=== PATIENT | male | born 1980 | race African-American/Black ===

== ENCOUNTER 2019-12-15 17:42 | Inpatient (IN) | payer OTHER ==
[2019-12-15] MEDS ORDERED: ALBUTEROL NEBULIZED 2.5 MG/3 ML INHALATION STA (18:20)
[2019-12-15] MEDS ORDERED: IBUPROFEN 600 MG TAB PO STA (18:21)
[2019-12-15] MEDS ORDERED: SODIUM CHLORIDE 0.9% 1,000 ML IV ONE (18:27)
[2019-12-15] MEDS ORDERED: MORPHINE SULFATE 4 MG/ML SYRINGE IV STA (18:30)
--- NOTE | 2019-12-15 18:46 | ED ---
General Adult HPI - General Source: patient, RN notes reviewed, old records reviewed Mode of arrival: wheelchair Limitations: no limitations <Breezy Valladares - Last Filed: 12/16/19 02:04> <Moni Montalvo - Last Filed: 12/17/19 12:26> - General Chief complaint: Recheck/Abnormal Lab/Rx Stated complaint: Dehydration Time Seen by Provider: 12/15/19 17:45 - History of Present Illness Initial comments: 39-year-old male patient with no pertinent past history presents to ED. Patient tested positive for Covid 2 days ago. Since then he has been having coughing, some pain in his chest, some shortness of breath. Patient reports that he is not doing much eating and drinking. Feels as if he is very dehydrated. Patient reports that yesterday he was standing up to urinate, felt very weak, had a controlled descent to ground. Denies any trauma to his head or neck. Denies any other complaints at this time. Systemic: Pt denies fatigue, rash. Pt denies weakness, night sweats, weight loss. Neuro: Pt denies headache, visual disturbances, syncope or pre-syncope. HEENT: Pt denies ocular discharge or irritation, otalgia, rhinorrhea, pharyngitis or notable lymphadenopathy. Cardiopulmonary: Pt denies chest pain, SOB, heart palpitations, dyspnea on exertion. Abdominal/GI: Pt denies abdominal pain, n/v/d. : Pt denies dysuria, burning w/ urination, frequency/urgency. Denies new onset urinary or bowel incontinence. MSK: Pt denies myalgia, loss of strength or function in extremities. Neuro: Pt denies new onset weakness, paresthesias. (Breezy Valladares) - Related Data Home Medications Medication Instructions Recorded Confirmed Acetaminophen Tab [Tylenol] 500 - 1,500 mg PO DAILY PRN 12/15/19 12/15/19 Azithromycin [Zithromax Z-pack] See Taper PO DAILY 12/15/19 12/15/19 Dextroamphetamine/Amphetamine 30 mg PO BID 12/15/19 12/15/19 [Dextroamp-Amphetamin 30 mg Tab] Allergies Allergy/AdvReac Type Severity Reaction Status Date / Time No Known Allergies Allergy Verified 12/15/19 23:02 Review of Systems ROS Other: All systems not noted in ROS Statement are negative. <Breezy Valladares - Last Filed: 12/16/19 02:04> ROS Other: All systems not noted in ROS Statement are negative. <Moni Montalvo - Last Filed: 12/17/19 12:26> ROS Statement: Those systems with pertinent positive or pertinent negative responses have been documented in the HPI. Past Medical History Past Medical History: No Reported History History of Any Multi-Drug Resistant Organisms: None Reported Past Surgical History: Orthopedic Surgery Additional Past Surgical History / Comment(s): foot, vasectomy Smoking Status: Never smoker Past Alcohol Use History: None Reported Past Drug Use History: None Reported - Past Family History family Family Medical History: No Reported History <Breezy Valladares - Last Filed: 12/16/19 02:04> General Exam Limitations: no limitations <Breezy Valladares - Last Filed: 12/16/19 02:04> - General Exam Comments Initial Comments: Constitutional: NAD, AOX3, Pt has pleasant affect. HEENT: NC/AT, trachea midline, neck supple. External ears appear normal, without discharge. Mucous membranes moist. Eyes PERRLA, EOM intact. There is no scleral icterus. No pallor noted. Cardiopulmonary: RRR, no murmurs, rubs or gallops, no JVD noted. Lungs CTAB in anterior and posterior craft. No peripheral edema. Abdominal exam: Abdomen soft and non-distended. Abdomen non-tender to palpation in all 4 quadrants. Bowel sounds active in LLQ. No hepatosplenomegaly. No ecchymosis Neuro: CN II-XII intact. No nuchal rigidity. No raccon eyes, no palma sign, no hemotympanum. No cervical spinal tenderness. MSK: No posterior calf tenderness bilaterally, homans sign negative bilaterally. Posterior tibialis and radial pulse +2 bilaterally. Sensation intact in upper and lower extremities. Full active ROM in upper and lower extremities, 5/5 stregnth. (Breezy Valladares) Course Vital Signs 12/15/19 12/15/19 12/15/19 18:07 19:21 19:54 Temperature 102.1 F H Pulse Rate 85 99 99 Respiratory 18 16 Rate Blood Pressure 112/75 126/87 O2 Sat by Pulse 99 100 Oximetry 06/12/15/19 12/15/19 20:04 20:10 20:38 Temperature 101.5 F H Pulse Rate 99 91 Respiratory 18 16 Rate Blood Pressure 134/90 O2 Sat by Pulse 98 Oximetry 12/15/19 12/15/19 22:57 23:01 Temperature 100.3 F H Pulse Rate 80 Respiratory 16 Rate Blood Pressure 110/71 O2 Sat by Pulse 98 Oximetry Medical Decision Making - Lab Data Result diagrams: 12/15/19 18:02 12/15/19 18:02 - EKG Data -: EKG Interpreted by Me (and Dr. Montalvo ) <Breezy Valladares - Last Filed: 12/16/19 02:04> - Lab Data Result diagrams: 12/17/19 05:49 12/17/19 05:49 <Moni Montalvo - Last Filed: 12/17/19 12:26> - Medical Decision Making 39-year-old male patient with no pertinent past history presents to ED. Patient tested positive for Covid 2 days ago. Since then he has been having coughing, some pain in his chest, some shortness of breath. Patient reports that he is not doing much eating and drinking. Feels as if he is very dehydrated. Patient reports that yesterday he was standing up to urinate, felt very weak, had a controlled descent to ground. Denies any trauma to his head or neck. Denies any other complaints at this time. Patient vital signs slight fever. Physical exam did not display acute pathology. Laboratory investigations were obtained. Overall non-impressive. CRP is elevated. As patient is claiming pain in the chest and had a possible syncopal episode a CTA was performed. This displayed no evidence of pulmonary embolism. Bilateral peripheral mainly posterior pulmonary infiltrates consistent with inflammatory disease. During reevaluation patient began complaining of headache. As patient had recent fall yesterday a CT of the brain and cervical spine was performed. This is negative. EKG is nonischemic. Patient be admitted for further evaluation. Case discussed with Dr. Montalvo. (Breezy Valladares) I was available for consultation in the emergency department. The history and physical exam were done by the midlevel provider. I was consulted for this patients care. I reviewed the case with the midlevel provider and based on their presentation of the patient, I agree with the assessment, medical decision making and plan of care as documented. I spoke with Dr. Lawson who accepted admission. Chart was dictated using [employer] dictation software. Attempts were made to correct any dictation errors however some typographical errors may persist. Patient was seen during a national state of emergency due to the Covid-19 pandemic. (Moni Montalvo) - Lab Data Lab Results 12/15/19 12/15/19 12/15/19 Range/Units 18:02 18:02 18:02 WBC 4.9 (3.8-10.6) k/uL RBC 4.80 (4.30-5.90) m/uL Hgb 15.1 (13.0-17.5) gm/dL Hct 43.0 (39.0-53.0) % MCV 89.5 (80.0-100.0) fL MCH 31.4 (25.0-35.0) pg MCHC 35.1 (31.0-37.0) g/dL RDW 11.6 (11.5-15.5) % Plt Count 195 (150-450) k/uL Neutrophils % 78 % Lymphocytes % 12 % Monocytes % 6 % Eosinophils % 1 % Basophils % 0 % Neutrophils # 3.8 (1.3-7.7) k/uL Lymphocytes # 0.6 L (1.0-4.8) k/uL Monocytes # 0.3 (0-1.0) k/uL Eosinophils # 0.0 (0-0.7) k/uL Basophils # 0.0 (0-0.2) k/uL PT (9.0-12.0) sec INR (<1.2) APTT (22.0-30.0) sec D-Dimer (<0.60) mg/L FEU Sodium 132 L (137-145) mmol/L Potassium 3.5 (3.5-5.1) mmol/L Chloride 101 (98-107) mmol/L Carbon Dioxide 22 (22-30) mmol/L Anion Gap 9 mmol/L BUN 11 (9-20) mg/dL Creatinine 1.16 (0.66-1.25) mg/dL Est GFR (CKD-EPI)AfAm >90 (>60 ml/min/1.73 sqM) Est GFR (CKD-EPI)NonAf 81 (>60 ml/min/1.73 sqM) Glucose 106 H (74-99) mg/dL Plasma Lactic Acid Kaleb 1.3 (0.7-2.0) mmol/L Calcium 9.1 (8.4-10.2) mg/dL Magnesium 2.0 (1.6-2.3) mg/dL Ferritin 718.8 H (22.0-322.0) ng/mL Total Bilirubin 0.6 (0.2-1.3) mg/dL AST 35 (17-59) U/L ALT 29 (4-49) U/L Alkaline Phosphatase 62 (38-126) U/L Lactate Dehydrogenase 538 (313-618) U/L Creatine Kinase (55-170) U/L Troponin I (0.000-0.034) ng/mL C-Reactive Protein 31.4 H (<10.0) mg/L Total Protein 7.4 (6.3-8.2) g/dL Albumin 4.2 (3.5-5.0) g/dL Procalcitonin (0.02-0.09) ng/mL 12/15/19 12/15/19 12/15/19 Range/Units 18:02 18:02 19:19 WBC (3.8-10.6) k/uL RBC (4.30-5.90) m/uL Hgb (13.0-17.5) gm/dL Hct (39.0-53.0) % MCV (80.0-100.0) fL MCH (25.0-35.0) pg MCHC (31.0-37.0) g/dL RDW (11.5-15.5) % Plt Count (150-450) k/uL Neutrophils % % Lymphocytes % % Monocytes % % Eosinophils % % Basophils % % Neutrophils # (1.3-7.7) k/uL Lymphocytes # (1.0-4.8) k/uL Monocytes # (0-1.0) k/uL Eosinophils # (0-0.7) k/uL Basophils # (0-0.2) k/uL PT 11.1 (9.0-12.0) sec INR 1.1 (<1.2) APTT 27.4 (22.0-30.0) sec D-Dimer <0.17 (<0.60) mg/L FEU Sodium (137-145) mmol/L Potassium (3.5-5.1) mmol/L Chloride (98-107) mmol/L Carbon Dioxide (22-30) mmol/L Anion Gap mmol/L BUN (9-20) mg/dL Creatinine (0.66-1.25) mg/dL Est GFR (CKD-EPI)AfAm (>60 ml/min/1.73 sqM) Est GFR (CKD-EPI)NonAf (>60 ml/min/1.73 sqM) Glucose (74-99) mg/dL Plasma Lactic Acid Kaleb (0.7-2.0) mmol/L Calcium (8.4-10.2) mg/dL Magnesium (1.6-2.3) mg/dL Ferritin (22.0-322.0) ng/mL Total Bilirubin (0.2-1.3) mg/dL AST (17-59) U/L ALT (4-49) U/L Alkaline Phosphatase (38-126) U/L Lactate Dehydrogenase (313-618) U/L Creatine Kinase (55-170) U/L Troponin I <0.012 (0.000-0.034) ng/mL C-Reactive Protein (<10.0) mg/L Total Protein (6.3-8.2) g/dL Albumin (3.5-5.0) g/dL Procalcitonin 0.15 H (0.02-0.09) ng/mL 12/16/19 12/16/19 12/17/19 Range/Units 00:33 05:54 05:49 WBC 2.2 L (3.8-10.6) k/uL RBC 4.53 (4.30-5.90) m/uL Hgb 13.5 (13.0-17.5) gm/dL Hct 41.7 (39.0-53.0) % MCV 92.0 (80.0-100.0) fL MCH 29.7 (25.0-35.0) pg MCHC 32.3 (31.0-37.0) g/dL RDW 11.8 (11.5-15.5) % Plt Count 198 (150-450) k/uL Neutrophils % 70 % Lymphocytes % 22 % Monocytes % 3 % Eosinophils % 1 % Basophils % 0 % Neutrophils # 1.5 (1.3-7.7) k/uL Lymphocytes # 0.5 L (1.0-4.8) k/uL Monocytes # 0.1 (0-1.0) k/uL Eosinophils # 0.0 (0-0.7) k/uL Basophils # 0.0 (0-0.2) k/uL PT (9.0-12.0) sec INR (<1.2) APTT (22.0-30.0) sec D-Dimer (<0.60) mg/L FEU Sodium (137-145) mmol/L Potassium (3.5-5.1) mmol/L Chloride (98-107) mmol/L Carbon Dioxide (22-30) mmol/L Anion Gap mmol/L BUN (9-20) mg/dL Creatinine (0.66-1.25) mg/dL Est GFR (CKD-EPI)AfAm (>60 ml/min/1.73 sqM) Est GFR (CKD-EPI)NonAf (>60 ml/min/1.73 sqM) Glucose (74-99) mg/dL Plasma Lactic Acid Kaleb (0.7-2.0) mmol/L Calcium (8.4-10.2) mg/dL Magnesium (1.6-2.3) mg/dL Ferritin (22.0-322.0) ng/mL Total Bilirubin (0.2-1.3) mg/dL AST (17-59) U/L ALT (4-49) U/L Alkaline Phosphatase (38-126) U/L Lactate Dehydrogenase (313-618) U/L Creatine Kinase (55-170) U/L Troponin I <0.012 <0.012 (0.000-0.034) ng/mL C-Reactive Protein (<10.0) mg/L Total Protein (6.3-8.2) g/dL Albumin (3.5-5.0) g/dL Procalcitonin (0.02-0.09) ng/mL 12/17/19 12/17/19 Range/Units 05:49 05:49 WBC (3.8-10.6) k/uL RBC (4.30-5.90) m/uL Hgb (13.0-17.5) gm/dL Hct (39.0-53.0) % MCV (80.0-100.0) fL MCH (25.0-35.0) pg MCHC (31.0-37.0) g/dL RDW (11.5-15.5) % Plt Count (150-450) k/uL Neutrophils % % Lymphocytes % % Monocytes % % Eosinophils % % Basophils % % Neutrophils # (1.3-7.7) k/uL Lymphocytes # (1.0-4.8) k/uL Monocytes # (0-1.0) k/uL Eosinophils # (0-0.7) k/uL Basophils # (0-0.2) k/uL PT (9.0-12.0) sec INR (<1.2) APTT (22.0-30.0) sec D-Dimer <0.17 (<0.60) mg/L FEU Sodium 135 L (137-145) mmol/L Potassium 4.7 (3.5-5.1) mmol/L Chloride 103 (98-107) mmol/L Carbon Dioxide 27 (22-30) mmol/L Anion Gap 5 mmol/L BUN 9 (9-20) mg/dL Creatinine 0.93 (0.66-1.25) mg/dL Est GFR (CKD-EPI)AfAm >90 (>60 ml/min/1.73 sqM) Est GFR (CKD-EPI)NonAf >90 (>60 ml/min/1.73 sqM) Glucose 134 H (74-99) mg/dL Plasma Lactic Acid Kaleb (0.7-2.0) mmol/L Calcium 8.6 (8.4-10.2) mg/dL Magnesium (1.6-2.3) mg/dL Ferritin (22.0-322.0) ng/mL Total Bilirubin 0.3 (0.2-1.3) mg/dL AST 35 (17-59) U/L ALT 31 (4-49) U/L Alkaline Phosphatase 59 (38-126) U/L Lactate Dehydrogenase 468 (313-618) U/L Creatine Kinase 113 (55-170) U/L Troponin I (0.000-0.034) ng/mL C-Reactive Protein 43.9 H (<10.0) mg/L Total Protein 6.6 (6.3-8.2) g/dL Albumin 3.6 (3.5-5.0) g/dL Procalcitonin (0.02-0.09) ng/mL - EKG Data EKG Comments: Ventricular rate 95, painful 166, QRS 90, QT/QTC 356 is 447. Normal sinus rhythm, nonspecific ST abnormality. No concern for acute ischemia at this time. (Breezy Valladares) Disposition Is patient prescribed a controlled substance at d/c from ED?: No <Breezy Valladares - Last Filed: 12/16/19 02:04> <Moni Montalvo - Last Filed: 12/17/19 12:26> Clinical Impression: COVID-19 Disposition: ADMITTED IP TO THIS HOSP Condition: Serious
--- NOTE | 2019-12-15 18:54 | XR ---
EXAMINATION TYPE: XR chest 1V portable DATE OF EXAM: 12/15/2019 COMPARISON: NONE HISTORY: Fever TECHNIQUE: Single view FINDINGS: Heart and mediastinum are normal. Lungs are clear. Diaphragm is normal. Bony thorax appears normal. IMPRESSION: Normal chest
[2019-12-15 19:17] LABS: Basophils % (A) 0 %; Eosinophils % (A) 1 %; HGB 15.1 gm/dL (13.0-17.5); Lymphocytes # (A) 0.6 k/uL (1.0-4.8); Lymphocytes % (A) 12 %; MCH 31.4 pg (25.0-35.0); MCHC 35.1 g/dL (31.0-37.0); MCV 89.5 fL (80.0-100.0); Mean Platelet Volume 7.2; Monocytes # (A) 0.3 k/uL (0-1.0); Monocytes % (A) 6 %; Neutrophils # (A) 3.8 k/uL (1.3-7.7); Neutrophils % (A) 78 %; Platelet Count 195 k/uL (150-450); RDW 11.6 % (11.5-15.5); WBC 4.9 k/uL (3.8-10.6)
[2019-12-15 19:18] LABS: ALT 29 U/L (4-49); AST 35 U/L (17-59); African American GFR (CKD) >90 (>60 ml/min/1.73 sqM); Albumin 4.2 g/dL (3.5-5.0); Alkaline Phosphatase 62 U/L (38-126); Anion Gap 9 mmol/L; Blood Urea Nitrogen 11 mg/dL (9-20); C Reactive Protein 31.4 mg/L (<10.0); Calcium 9.1 mg/dL (8.4-10.2); Carbon Dioxide 22 mmol/L (22-30); Chloride 101 mmol/L (98-107); Glucose 106 mg/dL (74-99); LDH 538 U/L (313-618); Non-African American GFR(CKD) 81 (>60 ml/min/1.73 sqM); Potassium 3.5 mmol/L (3.5-5.1); Sodium 132 mmol/L (137-145); Total Bilirubin 0.6 mg/dL (0.2-1.3); Total Protein 7.4 g/dL (6.3-8.2)
--- NOTE | 2019-12-15 20:13 | CT ---
EXAMINATION TYPE: CT chest angio for PE DATE OF EXAM: 12/15/2019 COMPARISON: None HISTORY: Shortness of breath with +COVID test CT DLP: 445.1 mGycm Automated exposure control for dose reduction was used. CONTRAST: Performed with IV Contrast, patient injected with 100 mL of Isovue 370. There are 3-D post processed images. There is patchy peripheral subpleural bilateral pulmonary infiltrates. These are predominantly in the posterior lung craft. There is subsegmental atelectasis at the lung bases. There is no mediastinal adenopathy. There are no hilar masses. Thoracic aorta is intact. There is no aneurysm or dissection. There are no hilar masses. The bony thorax is intact. There is normal contrast opacification of the pulmonary arteries. There are no filling defects. Upper abdominal soft tissues are intact. IMPRESSION: No evidence of pulmonary embolism. Bilateral peripheral mainly posterior pulmonary infiltrates consistent with inflammatory disease.
[2019-12-15 20:30] LABS: D-Dimer <0.17 mg/L FEU (<0.60); INR 1.1 (<1.2); Partial Thromboplastin Time 27.4 sec (22.0-30.0); Prothrombin Time 11.1 sec (9.0-12.0)
[2019-12-15] MEDS ORDERED: NALOXONE 0.4 MG/ML 1 ML VIAL IV PRN (21:40)
[2019-12-15] MEDS ORDERED: IBUPROFEN 400 MG TAB PO PRN (21:40)
--- NOTE | 2019-12-15 22:45 | CT ---
EXAMINATION TYPE: CT brain cspine wo con DATE OF EXAM: 12/15/2019 COMPARISON: None HISTORY: Fall, dehydration CT DLP: 1593.6 mGycm Automated exposure control for dose reduction was used. Multiple axial sections were obtained of the brain without contrast. Multiple axial sections were obt ained from the skull base to T1 vertebra without contrast. FINDINGS: Ventricles and sulci appear normal. There is no mass effect nor midline shift. There is no sign of in tracranial hemorrhage. The calvarium is intact. Cervical vertebra have normal spacing and alignment. Posterior elements are intact. There is no compr ession fracture. Facet joints are intact. The skull base is intact. There is normal aeration of the t emporal bones. IMPRESSION: Normal CT scan of the brain. Normal CT scan of the cervical spine.
[2019-12-15] MEDS: SODIUM CHLORIDE 0.9% 1,000 ML IV SCH (22:55)
[2019-12-15] MEDS: ACETAMINOPHEN TAB 325 MG TAB PO PRN (22:57)
--- NOTE | 2019-12-15 23:03 | P.HPIM ---
History of Present Illness H&P Date: 12/15/19 Chief Complaint: shortness of breath 39 year old male healthy with no medical history patient comes in due to worsening shortness of breath and coughing of 1 week duration . he reports being sick , having fevers, cough, and shortness of breath for the past week which has been progressively getting worse, he finished a course of Zpack, with no benefit. he got tested for COVID 19 about 3 days ago and found to be positive. over past 3 days, decrease PO intake due to intol erance and vomiting. denies any chest pain , abd pain , leg pain , diarrhea, travel , or sick contact with COVID patients. he claims to have been following guidelines for hygiene wearing mask and social distancing. he otherwise denies any medical history yesterday, he felt very week and had a syncopal/presyncopal episode when he tried to stand up, denies any head injury. in the ED , his CXR unremarkable, but CTA of the chest showed inflammatory changes. Review of Systems Pertinent positives as noted in HPI. All other systems were reviewed and are negative Past Medical History Past Medical History: No Reported History History of Any Multi-Drug Resistant Organisms: None Reported Past Surgical History: Orthopedic Surgery Additional Past Surgical History / Comment(s): foot, vasectomy Smoking Status: Never smoker Past Alcohol Use History: None Reported Past Drug Use History: None Reported - Past Family History family Family Medical History: No Reported History Medications and Allergies Allergies Allergy/AdvReac Type Severity Reaction Status Date / Time No Known Allergies Allergy Verified 12/15/19 23:02 Physical Exam Vitals: Vital Signs Temp Pulse Resp BP Pulse Ox 12/15/19 20:38 101.5 F H 91 16 134/90 98 12/15/19 20:10 18 12/15/19 20:04 99 12/15/19 19:54 99 12/15/19 19:21 99 16 126/87 100 12/15/19 18:07 102.1 F H 85 18 112/75 99 Intake and Output 12/15/19 12/15/19 12/15/19 06:59 14:59 22:59 Other: Weight 113.398 kg Constitutional: No acute distress, conversant, pleasant Eyes: Anicteric sclerae, moist conjunctiva, Pupils equal round reactive to light ENMT: NC/AT Oropharynx clear, no erythema, or exudates Neck: Supple, FROM, no masses, or JVD No carotid bruits No thyromegaly Lungs: Clear to auscultation Clear to percussion Normal respiratory effort, no accessory muscle use Cardiovascular: Heart regular in rate and rhythm, No murmurs, gallops, or rubs No peripheral edema Abdominal: Soft Nontender, no guarding, rebound or rigidity Abdomen moving with respiration Normoactive bowel sounds No hepatomegaly, No splenomegaly No palpable mass No abdominal wall hernia noted Skin: Normal temperature, tone, texture, turgor No induration No subcutaneous nodules No rash, lesions No ulcers Extremities: No digital cyanosis No clubbing Pedal pulses intact and symmetrical Radial pulses intact and symmetrical No calf tenderness Psychiatric: Alert and oriented to person, place and time Appropriate affect fair judgement Neuro Muscles Strength 5/5 in all 4 extremities Sensation to light touch grossly present throughout Cranial nerves II-XII grossly intact No focal sensory deficits Lymphatics: no palpable cervical or supraclavicular , or inguinal lymph nodes Results CBC & Chem 7: 12/15/19 18:02 12/15/19 18:02 Labs: Abnormal Lab Results - Last 24 Hours (Table) 12/15/19 12/15/19 Range/Units 18:02 18:02 Lymphocytes # 0.6 L (1.0-4.8) k/uL Sodium 132 L (137-145) mmol/L Glucose 106 H (74-99) mg/dL C-Reactive Protein 31.4 H (<10.0) mg/L Assessment and Plan Assessment: 39 year old male with no significant past medical history comes in due to worsening SOB and coughing, decrease PO intake and repeated vomiting. with syncopal / presyncopal episode. patient tested positive for COVID 19 admitted with anticipated length of stay > 48 hours acute viral pneumonia secondary to COVID 19 dehydration secondary to repeated vomiting supportive care IVF hydration gentle supplemental oxygen as needed CTA reviewed no PE cxr unremarkable labs reviewed airborn and droplet isolation potline monitor EKG heparin sc tid for dvt ppx full code anticipated discharge to home , anticipated length of stay > 48 hours A total of 75 minutes was spent on the care of this complex patient more than 50% of the time was spent in counseling and care coordination.
[2019-12-16] MEDS: HEPARIN SODIUM,PORCINE 5,000 UNIT/ML 1 ML VIAL SQ SCH ×2 (00:06→08:45)
[2019-12-16] MEDS: MORPHINE SULFATE 4 MG/ML SYRINGE IV PRN ×4 (04:25→20:53)
[2019-12-16] MEDS: SODIUM CHLORIDE 0.9% 1,000 ML IV SCH ×2 (08:45→17:49)
[2019-12-16] MEDS ORDERED: MORPHINE SULFATE 2 MG/ML SYRINGE IVP STA (11:24)
[2019-12-16 11:54] LABS: Ferritin 718.8 ng/mL (22.0-322.0)
[2019-12-16 11:56] VITALS: BMI 28.4
--- NOTE | 2019-12-16 13:11 | P.CNPUL ---
History of Present Illness Consult date: 12/16/19 Requesting physician: Reza Lawson Reason for consult: dyspnea, cough, chest pain, abnormal CXR/CT Chief complaint: Dyspnea, chest pain, cough History of present illness: 39-year-old white male patient of Dr. Fagan, with no significant past medical history, presented to the emergency department on 12/15/2019 with one week history of shortness of breath, coughing, fever, not feeling well. Patient went to be seen at the [facility], was tested for "with 19 and the results were inconclusive. He was given a course of Z-Agustin which she completed 3 days worth. His symptoms did not improve, patient was increasingly more short of breath, having decreased oral intake, nausea and vomiting, and he went to get tested at [facility], and was found to be positive. 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 Yesterday patient felt very weak and felt very lightheaded. He presented to the ED for evaluation. Chest x-ray was unremarkable, but CTA chest showed bilateral peripheral mainly posterior pulmonary infiltrates consistent with inflammatory disease, no evidence of pulmonary embolism. Labs showed normal white count of 4.9, hemoglobin of 15.1, lymphocyte count was 0.6, coagulation profile was within normal limits, d-dimer was less than 0.17, sodium was 132, the rest of t he electrolytes and renal profile were within normal limits, plasma lactic acid was normal at 1.3, ferritin level was 718, LFTs were within normal limits, LDH was 538, 3 sets of troponins were less than 0.012, CRP was 31.4, and pro- calcitonin was 0.15. Patient was febrile on presentation with a temp of 102.1F. Normotensive, room air pulse ox is 98-100%. During our evaluation he is awake and alert, he is complaining of a headache, CT of the brain, and C- spine was completed showing normal scan of the brain and of the cervical spine. Patient was started on Zithromax and Rocephin for empiric antibiotic coverage, he was given IV fluid hydration, he was given morphine for pain control. During her evaluation patient is awake and alert, oriented 3, he is dyspneic and slightly tachypneic, he is on room air, with a pulse ox of 99%, low-grade fever this afternoon, with a temp of 100.4F. Review of Systems All systems: negative Constitutional: Reports malaise, Reports poor appetite, Reports weakness, Denies chills, Denies fever Eyes: denies blurred vision, denies pain Ears, nose, mouth and throat: Denies headache, Denies sore throat Cardiovascular: Denies chest pain, Denies shortness of breath Respiratory: Reports cough, Reports dyspnea Gastrointestinal: Reports nausea, Reports vomiting, Denies abdominal pain, Denies diarrhea Musculoskeletal: Denies myalgias Integumentary: Denies pruritus, Denies rash Neurological: Denies numbness, Denies weakness Psychiatric: Denies anxiety, Denies depression Endocrine: Denies fatigue, Denies weight change Past Medical History Past Medical History: No Reported History History of Any Multi-Drug Resistant Organisms: None Reported Past Surgical History: Orthopedic Surgery Additional Past Surgical History / Comment(s): foot, vasectomy Smoking Status: Never smoker Past Alcohol Use History: None Reported Past Drug Use History: None Reported - Past Family History family Family Medical History: No Reported History Medications and Allergies Home Medications Medication Instructions Recorded Confirmed Type Acetaminophen Tab [Tylenol] 500 - 1,500 mg PO DAILY PRN 12/15/19 12/15/19 History Azithromycin [Zithromax Z-pack] See Taper PO DAILY 12/15/19 12/15/19 History Dextroamphetamine/Amphetamine 30 mg PO BID 12/15/19 12/15/19 History [Dextroamp-Amphetamin 30 mg Tab] Allergies Allergy/AdvReac Type Severity Reaction Status Date / Time No Known Allergies Allergy Verified 12/15/19 23:02 Physical Exam Vitals: Vital Signs Temp Pulse Pulse Resp BP BP Pulse Ox 12/16/19 11:31 100.4 F H 90 20 128/79 99 12/16/19 08:00 99.7 F H 78 16 127/85 100 12/16/19 04:25 98.7 F 79 18 114/66 98 12/16/19 00:00 99.7 F H 76 18 114/58 97 12/15/19 23:58 18 12/15/19 23:01 100.3 F H 12/15/19 22:57 80 16 110/71 98 12/15/19 20:38 101.5 F H 91 16 134/90 98 12/15/19 20:10 18 12/15/19 20:04 99 12/15/19 19:54 99 12/15/19 19:21 99 16 126/87 100 12/15/19 18:07 102.1 F H 85 18 112/75 99 Intake and Output 12/15/19 12/16/19 12/16/19 22:59 06:59 14:59 Intake Total 0 Output Total 800 Balance 0 -800 Intake: Oral 0 Output: Urine 800 Other: Voiding Method Toilet Urinal # Voids 1 # Bowel Movements 0 Weight 113.398 kg 111.5 kg 111.5 kg GENERAL EXAM: Alert, very pleasant, 39-year-old -[place] male, resting in bed, dyspneic with conversation, slightly tachypneic but on room air, with a pulse ox of 99% in no apparent distress. HEAD: Normocephalic/atraumatic. EYES: Normal reaction of pupils, equal size. Conjunctiva pink, sclera white. NOSE: Clear with pink turbinates. THROAT: No erythema or exudates. NECK: No masses, no JVD, no thyroid enlargement, no adenopathy. CHEST: No chest wall deformity. Symmetrical expansion. LUNGS: Equal air entry with no crackles, wheeze, rhonchi or dullness. CVS: Regular rate and rhythm, normal S1 and S2, no gallops, no murmurs, no rubs ABDOMEN: Soft, nontender. No hepatosplenomegaly, normal bowel sounds, no guarding or rigidity. EXTREMITIES: No clubbing, no edema, no cyanosis, 2+ pulses and upper and lower extremities. MUSCULOSKELETAL: Muscle strength and tone normal. SPINE: No scoliosis or deformity SKIN: No rashes CENTRAL NERVOUS SYSTEM: Alert and oriented -3. No focal deficits, tone is normal in all 4 extremities. PSYCHIATRIC: Alert and oriented -3. Appropriate affect. Intact judgment and insight. Results - Laboratory Findings CBC and BMP: 12/15/19 18:02 12/15/19 18:02 PT/INR, D-dimer PT 11.1 sec (9.0-12.0) 12/15/19 19:19 INR 1.1 (<1.2) 12/15/19 19:19 D-Dimer <0.17 mg/L FEU (<0.60) 12/15/19 19:19 Abnormal lab findings: Abnormal Labs 12/15/19 12/15/19 12/15/19 18:02 18:02 18:02 Lymphocytes # 0.6 L Sodium 132 L Glucose 106 H Ferritin 718.8 H C-Reactive Protein 31.4 H Procalcitonin 0.15 H - Diagnostic Findings Chest x-ray: report reviewed, image reviewed CT scan - chest: report reviewed, image reviewed Additional studies: EKG reviewed Assessment and Plan Plan: Assessment: #1. Acute Covid 19 related pneumonitis, patient resented with one-week history of dyspnea, shortness of breath, chest discomfort, nausea and vomiting. Was tested on outpatient basis at the [facility] 2 days ago, and had positive results #2. Dyspnea, cough, fever, nausea and vomiting related to the above #3. Elevated ferritin, CRP related to Covid 19 pneumonitis, LDH was within normal limits at 538, and d-dimer was less than 0.17, will follow inflammatory markers #4. Lightheadedness, presyncopal episode related to poor oral intake, nausea and vomiting, dehydration #5. Headache, CT of the brain and cervical spine negative #6. Never smoker Plan: We will add IV steroids at 40 mg every 8 hours, we'll switch heparin to Lovenox 40 mg daily, add albuterol inhaler, add supplemental oxygen. Follow-up inflammatory markers including LDH, CRP, d-dimer tomorrow, continue close monitoring for febrile pattern, dyspnea, and increasing oxygen demand. May consider moving to the intensive care unit if symptoms worsen. Continue IV hydration. We'll closely follow I performed a history & physical examination of the patient and discussed their management with my nurse practitioner, Nel Fisher. I reviewed the nurse practitioner's note and agree with the documented findings and plan of care. Lung sounds are positive for diminished. The findings and the impression was discussed with the patient. I attest to the documentation by the nurse practitioner. Time with Patient: Greater than 30
[2019-12-16] MEDS: AZITHROMYCIN 500 MG in SODIUM CHLORIDE 0.9% 250 ML IVPB SCH (14:18)
[2019-12-16] MEDS: ENOXAPARIN 40 MG/0.4 ML SYRINGE SQ SCH (14:20)
[2019-12-16] MEDS: ACETAMINOPHEN TAB 325 MG TAB PO PRN ×2 (15:40→20:59)
[2019-12-16] MEDS: methylPREDNISolone SOD SUCCI 40 MG/ML 1 ML VIAL IV SCH (15:40)
--- NOTE | 2019-12-16 18:58 | P.PN ---
Subjective Progress Note Date: 12/16/19 Principal diagnosis: coronavirus Patient was seen and examined. No acute events overnight. Patient reports intense chest pain when he coughs. Pain has been well controlled with morphine as needed. He reports some shortness of breath with exertion. He denies any palpitations, nausea or vomiting. T-max is 102.6 Fahrenheit. Objective - Vital Signs Vital signs: Vital Signs Temp 102.6 F H 12/16/19 15:45 Pulse 98 12/16/19 15:45 Resp 16 12/16/19 15:45 BP 130/81 12/16/19 15:45 Pulse Ox 100 12/16/19 15:46 Intake & Output 12/15/19 12/16/19 12/16/19 18:59 06:59 18:59 Intake Total 0 125 Output Total 800 Balance 0 -675 Weight 113.398 kg 111.5 kg 111.5 kg Intake: Oral 0 125 Output: Urine 800 Other: Voiding Method Toilet Toilet Urinal Urinal # Voids 1 2 # Bowel Movements 0 - Exam General: [non toxic], [no distress], [appears at stated age] Derm: [warm], [dry] Head: [atraumatic], [normocephalic], [symmetric] Eyes: [EOMI], [no lid lag], [anicteric sclera] Mouth: [no lip lesion], [mucus membranes moist] Cardiovascular: [S1S2 reg], [tachycardic], [positive DP pulse bilateral], Lungs: [CTA bilateral], [no rhonchi, no rales] , [no accessory muscle use] Abdominal: [soft], [ nontender to palpation], [no guarding], [no appreciable organomegaly] Ext: [no gross muscle atrophy], [no edema], [no contractures] Neuro: [no focal neurologic deficits] Psych: [alert and oriented 3] - Labs CBC & Chem 7: 12/15/19 18:02 12/15/19 18:02 Labs: Abnormal Lab Results - Last 24 Hours (Table) 12/15/19 12/15/19 12/15/19 Range/Units 18:02 18:02 18:02 Lymphocytes # 0.6 L (1.0-4.8) k/uL Sodium 132 L (137-145) mmol/L Glucose 106 H (74-99) mg/dL Ferritin 718.8 H (22.0-322.0) ng/mL C-Reactive Protein 31.4 H (<10.0) mg/L Procalcitonin 0.15 H (0.02-0.09) ng/mL Assessment and Plan Assessment: Acute viral pneumonia secondary to COVID 19 Hyponatremia likely due to dehydration Patient had coronavirus testing positive in the outpatient setting. Given elevated pro-calcitonin, there may be superimposed bacterial pneumonia. He'll be started on Rocephin and azithromycin. Blood culture has been ordered. His inflammatory markers are consistent with coronavirus infection. He was placed on droplet and isolation precautions. Patient was started on Solu-Medrol by pulmonology. We will add albuterol inhaler as needed for shortness of breath and wheezing. Patient is on telemetry monitoring. Inflammatory markers will be repeated tomorrow. He will be given supplemental O2 per NC to maintain O2 saturation greater than 92%. He'll be started on normal saline at 125 mL/h for his hyponatremia. BMP will be repeated tomorrow morning. Lovenox for DVT prophylaxis. Patient is FULL CODE. Patient states that he is okay being intubated if necessary.
[2019-12-16] MEDS: FAMOTIDINE 20 MG/2 ML VIAL IV SCH (20:53)
[2019-12-17] MEDS: methylPREDNISolone SOD SUCCI 40 MG/ML 1 ML VIAL IV SCH ×4 (00:05→23:16)
[2019-12-17] MEDS: MORPHINE SULFATE 4 MG/ML SYRINGE IV PRN (03:02)
[2019-12-17] MEDS: SODIUM CHLORIDE 0.9% 1,000 ML IV SCH ×4 (06:35→20:26)
[2019-12-17 06:49] LABS: Basophils % (A) 0 %; Eosinophils % (A) 1 %; HCT 41.7 % (39.0-53.0); HGB 13.5 gm/dL (13.0-17.5); Lymphocytes # (A) 0.5 k/uL (1.0-4.8); Lymphocytes % (A) 22 %; MCH 29.7 pg (25.0-35.0); MCHC 32.3 g/dL (31.0-37.0); Mean Platelet Volume 7.4; Monocytes # (A) 0.1 k/uL (0-1.0); Monocytes % (A) 3 %; Neutrophils # (A) 1.5 k/uL (1.3-7.7); Neutrophils % (A) 70 %; Platelet Count 198 k/uL (150-450); RBC 4.53 m/uL (4.30-5.90); RDW 11.8 % (11.5-15.5); WBC 2.2 k/uL (3.8-10.6)
[2019-12-17 06:58] LABS: Potassium 4.7 mmol/L (3.5-5.1)
[2019-12-17 07:01] LABS: ALT 31 U/L (4-49); AST 35 U/L (17-59); African American GFR (CKD) >90 (>60 ml/min/1.73 sqM); Albumin 3.6 g/dL (3.5-5.0); Alkaline Phosphatase 59 U/L (38-126); Anion Gap 5 mmol/L; Blood Urea Nitrogen 9 mg/dL (9-20); C Reactive Protein 43.9 mg/L (<10.0); Calcium 8.6 mg/dL (8.4-10.2); Carbon Dioxide 27 mmol/L (22-30); Chloride 103 mmol/L (98-107); Creatine Kinase 113 U/L (55-170); Glucose 134 mg/dL (74-99); LDH 468 U/L (313-618); Non-African American GFR(CKD) >90 (>60 ml/min/1.73 sqM); Sodium 135 mmol/L (137-145); Total Bilirubin 0.3 mg/dL (0.2-1.3); Total Protein 6.6 g/dL (6.3-8.2)
[2019-12-17] MEDS: AZITHROMYCIN 500 MG in SODIUM CHLORIDE 0.9% 250 ML IVPB SCH (08:26)
[2019-12-17] MEDS: FAMOTIDINE 20 MG/2 ML VIAL IV SCH ×2 (08:26→20:25)
--- NOTE | 2019-12-17 11:36 | P.PN ---
Subjective Progress Note Date: 12/17/19 Principal diagnosis: Dyspnea, cough, chest pain, COVID 19 pneumonitis 39-year-old male patient of Dr. Fagan, with no significant past medical history, presented to the emergency department on 12/15/2019 with one week history of shortness of breath, coughing, fever, not feeling well. Patient was seen at the [facility], was tested for COVID 19 and the results were inconclusive. He was given a course of Z-Agustin which she completed 3 days worth. His symptoms did not improve, patient was increasingly more short of breath, having decreased oral intake, nausea and vomiting, and he went to get tested at [facility], and was found to be positive. 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 Yesterday patient felt very weak and felt very lightheaded. He presented to the ED for evaluation. Chest x-ray was unremarkable, but CTA chest showed bilateral peripheral mainly posterior pulmonary infiltrates consistent with inflammatory disease, no evidence of pulmonary embolism. Labs showed normal white count of 4.9, hemoglobin of 15.1, lymphocyte count was 0.6, coagulation profile was within normal limits, d-dimer was less than 0.17, sodium was 132, the rest of the electrolytes and renal profile were within normal limits, plasma lactic acid was normal at 1.3, ferritin level was 718, LFTs were within normal limits, LDH was 538, 3 sets of troponins were less than 0.012, CRP was 31.4, and pro- calcitonin was 0.15. Patient was febrile on presentation with a temp of 102.1F. Normotensive, room air pulse ox is 98-100%. During our evaluation he is awake and alert, he is complaining of a headache, CT of the brain, and C- spine was completed showing normal scan of the brain and of the cervical spine. Patient was started on Zithromax and Rocephin for empiric antibiotic coverage, he was given IV fluid hydration, he was given morphine for pain control. During her evaluation patient is awake and alert, oriented 3, he is dyspneic and slightly tachypneic, he is on room air, with a pulse ox of 99%, low-grade fever this afternoon, with a temp of 100.4F. On 12/17/2019 patient is seen in follow-up on selective care unit, she is resting comfortably in bed, he states he is feeling better, his dyspnea and chest discomfort have improved, no vomiting, although his stomach still feels in "nots". The patient was able to tolerate breakfast. Febrile pattern seems to have improved, patient is afebrile today. Room air pulse ox is 99%, hemody namically he stable, lung sounds reveal crackles at bilateral bases. No wheezes, today's labs have been reviewed showing white blood cell count of 2.2, hemoglobin of 13.5, repeat d-dimer was less than 0.17, sodium is 135, the rest of the electrolytes are within normal limits, inflammatory markers were repeated, ferritin level is pending, LDH is 468, 3 sets of troponins were negative at less than 0.012, CRP is 43.9. he remains on empiric antibiotics, his pro-calcitonin was mildly elevated to 0.15. Blood cultures have been sent. Vision is on prophylactic anticoagulation in the form of Lovenox, IV steroids, and albuterol inhaler. Objective - Vital Signs Vital signs: Vital Signs Temp 98.5 F 12/17/19 11:24 Pulse 79 12/17/19 11:24 Resp 20 12/17/19 11:24 BP 133/86 12/17/19 11:24 Pulse Ox 99 12/17/19 11:24 Intake & Output 12/16/19 12/17/19 12/17/19 18:59 06:59 18:59 Intake Total 125 1300 Output Total 800 Balance -675 1300 Weight 111.5 kg Intake: IV 1300 Azithromycin 500 mg In 250 Sodium Chloride 0.9% 250 ml @ 250 mls/hr IVPB DAILY ROJELIO Rx#:[id number] Sodium Chloride 0.9% 1, 1000 000 ml @ 125 mls/hr IV . Q8H ROJELIO Rx#:[id number] cefTRIAXone 1 gm In 50 Sodium Chloride 0.9% 50 ml @ 100 mls/hr IVPB Q24HR ROJELIO Rx#:[id number] Oral 125 Output: Urine 800 Other: Voiding Method Toilet Toilet Toilet Urinal Urinal Urinal # Voids 2 1 - Exam GENERAL EXAM: Alert, very pleasant, 39-year-old -[place] male, resting i n bed, on room air with pulse ox of 99%, with a pulse ox of 99% in no apparent distress. HEAD: Normocephalic/atraumatic. EYES: Normal reaction of pupils, equal size. Conjunctiva pink, sclera white. NOSE: Clear with pink turbinates. THROAT: No erythema or exudates. NECK: No masses, no JVD, no thyroid enlargement, no adenopathy. CHEST: No chest wall deformity. Symmetrical expansion. LUNGS: Equal air entry with bibasilar crackles CVS: Regular rate and rhythm, normal S1 and S2, no gallops, no murmurs, no rubs ABDOMEN: Soft, nontender. No hepatosplenomegaly, normal bowel sounds, no guarding or rigidity. EXTREMITIES: No clubbing, no edema, no cyanosis, 2+ pulses and upper and lower extremities. MUSCULOSKELETAL: Muscle strength and tone normal. SPINE: No scoliosis or deformity SKIN: No rashes CENTRAL NERVOUS SYSTEM: Alert and oriented -3. No focal deficits, tone is normal in all 4 extremities. PSYCHIATRIC: Alert and oriented -3. Appropriate affect. Intact judgment and insight. - Labs CBC & Chem 7: 12/17/19 05:49 12/17/19 05:49 Labs: Abnormal Lab Results - Last 24 Hours (Table) 12/15/19 12/15/19 12/17/19 Range/Units 18:02 18:02 05:49 WBC 2.2 L (3.8-10.6) k/uL Lymphocytes # 0.5 L (1.0-4.8) k/uL Sodium (137-145) mmol/L Glucose (74-99) mg/dL Ferritin 718.8 H (22.0-322.0) ng/mL C-Reactive Protein (<10.0) mg/L Procalcitonin 0.15 H (0.02-0.09) ng/mL 12/17/19 Range/Units 05:49 WBC (3.8-10.6) k/uL Lymphocytes # (1.0-4.8) k/uL Sodium 135 L (137-145) mmol/L Glucose 134 H (74-99) mg/dL Ferritin (22.0-322.0) ng/mL C-Reactive Protein 43.9 H (<10.0) mg/L Procalcitonin (0.02-0.09) ng/mL Microbiology - Last 24 Hours (Table) 12/15/19 19:19 Blood Culture - Preliminary Blood No Growth after 24 hours Assessment and Plan Plan: Assessment: #1. Acute Covid 19 related pneumonitis, patient resented with one-week history of dyspnea, shortness of breath, chest discomfort, nausea and vomiting. Was tested on outpatient basis at the [facility] 2 days ago, and had positive results #2. Dyspnea, cough, fever, nausea and vomiting related to the above #3. Elevated ferritin, CRP related to Covid 19 pneumonitis, LDH was within normal limits at 538, and d-dimer was less than 0.17, will follow inflammatory markers #4. Lightheadedness, presyncopal episode related to poor oral intake, nausea and vomiting, dehydration #5. Headache, CT of the brain and cervical spine negative #6. Never smoker Plan: Continue current medical treatment, continue IV steroids, albuterol, empiric antibiotics, patient is feeling better today, maintaining stable O2 saturations on room air, inflammatory markers have been noted, d-dimer is within normal li mits. Fever has improved. Continue IV hydration, no further nausea, patient is tolerating oral intake. Seems to be improving, will continue to follow. If continues to improve may consider for discharge home in the next 24-48 hours I performed a history & physical examination of the patient and discussed their management with my nurse practitioner, Nel Fisher. I reviewed the nurse practitioner's note and agree with the documented findings and plan of care. Lung sounds are positive for diminished. The findings and the impression was discussed with the patient. I attest to the documentation by the nurse practitioner. Time with Patient: Less than 30
[2019-12-17 12:47] LABS: Ferritin 838.7 ng/mL (22.0-322.0)
[2019-12-17] MEDS: ENOXAPARIN 40 MG/0.4 ML SYRINGE SQ SCH (14:18)
--- NOTE | 2019-12-17 16:04 | P.PN ---
Subjective Progress Note Date: 12/17/19 Principal diagnosis: coronavirus Patient was seen and examined. No acute events overnight. Patient reports significant improvement in his cough and pleuritic chest pain. Afebrile today. He reports some shortness of breath with exertion that is improving. He denies any palpitations, nausea or vomiting. Objective - Vital Signs Vital signs: Vital Signs Temp 98.9 F 12/17/19 15:51 Pulse 77 12/17/19 15:51 Resp 20 12/17/19 15:51 BP 125/74 12/17/19 15:51 Pulse Ox 99 12/17/19 15:51 Intake & Output 12/16/19 12/17/19 12/17/19 18:59 06:59 18:59 Intake Total 125 1300 Output Total 800 Balance -675 1300 Weight 111.5 kg Intake: IV 1300 Azithromycin 500 mg In 250 Sodium Chloride 0.9% 250 ml @ 250 mls/hr IVPB DAILY ROJELIO Rx#:[id number] Sodium Chloride 0.9% 1, 1000 000 ml @ 125 mls/hr IV . Q8H ROJELIO Rx#:[id number] cefTRIAXone 1 gm In 50 Sodium Chloride 0.9% 50 ml @ 100 mls/hr IVPB Q24HR ROJELIO Rx#:[id number] Oral 125 Output: Urine 800 Other: Voiding Method Toilet Toilet Toilet Urinal Urinal Urinal # Voids 2 1 1 # Bowel Movements 0 - Exam General: [non toxic], [no distress], [appears at stated age] Derm: [warm], [dry] Head: [atraumatic], [normocephalic], [symmetric] Eyes: [EOMI], [no lid lag], [anicteric sclera] Mouth: [no lip lesion], [mucus membranes moist] Cardiovascular: [S1S2 reg], [tachycardic], [positive DP pulse bilateral], Lungs: [CTA bilateral], [no rhonchi, no rales] , [no accessory muscle use] Abdominal: [soft], [ nontender to palpation], [no guarding], [no appreciable organomegaly] Ext: [no gross muscle atrophy], [no edema], [no contractures] Neuro: [no focal neurologic deficits] Psych: [alert and oriented 3] - Labs CBC & Chem 7: 12/17/19 05:49 12/17/19 05:49 Labs: Abnormal Lab Results - Last 24 Hours (Table) 12/17/19 12/17/19 Range/Units 05:49 05:49 WBC 2.2 L (3.8-10.6) k/uL Lymphocytes # 0.5 L (1.0-4.8) k/uL Sodium 135 L (137-145) mmol/L Glucose 134 H (74-99) mg/dL Ferritin 838.7 H (22.0-322.0) ng/mL C-Reactive Protein 43.9 H (<10.0) mg/L Microbiology - Last 24 Hours (Table) 12/15/19 19:19 Blood Culture - Preliminary Blood No Growth after 24 hours Assessment and Plan Assessment: Acute viral pneumonia secondary to COVID 19 Leukopenia Hyponatremia likely due to dehydration Patient had coronavirus testing positive in the outpatient setting. Given elevated pro-calcitonin, there may be superimposed bacterial pneumonia. He'll be continued on Rocephin and azithromycin. Blood culture has been ordered, prelim negative at 24H. His inflammatory markers are consistent with coronavirus infection (elevated ferritin, CRP that is slightly worsened from yesterday). He was placed on droplet and isolation precautions. Patient was started on Solu- Medrol by pulmonology. We will continue albuterol inhaler as needed for shortness of breath and wheezing. Patient is on telemetry monitoring. Inflammatory markers will be repeated tomorrow. He will be given supplemental O2 per NC to maintain O2 saturation greater than 92%. Patient's WBC count of 2.2 with lymphopenia. The lymphopenia could be related to COVID 19 infection. Leukopenia is likely dilutional as all of his cell lines have decreased except platelet count. His hyponatremia is likely related to dehydration. His sodium has improved since yesterday. He'll be started on normal saline at 125 mL/h for his hyponatremia. BMP will be repeated tomorrow morning. Lovenox for DVT prophylaxis. Patient is FULL CODE. Patient states that he is okay being intubated if necessary.
[2019-12-18] MEDS: MORPHINE SULFATE 4 MG/ML SYRINGE IV PRN ×2 (02:11→20:46)
[2019-12-18] MEDS: SODIUM CHLORIDE 0.9% 1,000 ML IV SCH ×3 (06:11→20:50)
[2019-12-18] MEDS: ALBUTEROL HFA INHALER INHALATION PRN ×4 (08:13→19:34)
[2019-12-18 08:22] LABS: Basophils % (A) 0 %; Eosinophils # (A) 0.1 k/uL (0-0.7); Eosinophils % (A) 1 %; HCT 41.7 % (39.0-53.0); HGB 14.2 gm/dL (13.0-17.5); Lymphocytes # (A) 0.7 k/uL (1.0-4.8); Lymphocytes % (A) 9 %; MCH 31.2 pg (25.0-35.0); MCHC 33.9 g/dL (31.0-37.0); MCV 91.9 fL (80.0-100.0); Mean Platelet Volume 7.7; Monocytes # (A) 0.3 k/uL (0-1.0); Monocytes % (A) 4 %; Neutrophils # (A) 6.9 k/uL (1.3-7.7); Neutrophils % (A) 86 %; Platelet Count 236 k/uL (150-450); RBC 4.54 m/uL (4.30-5.90); RDW 11.8 % (11.5-15.5); WBC 8.1 k/uL (3.8-10.6)
[2019-12-18 08:38] LABS: ALT 53 U/L (4-49); AST 52 U/L (17-59); African American GFR (CKD) >90 (>60 ml/min/1.73 sqM); Albumin 3.5 g/dL (3.5-5.0); Alkaline Phosphatase 58 U/L (38-126); Anion Gap 7 mmol/L; Blood Urea Nitrogen 12 mg/dL (9-20); Calcium 8.7 mg/dL (8.4-10.2); Carbon Dioxide 27 mmol/L (22-30); Chloride 105 mmol/L (98-107); Creatine Kinase 77 U/L (55-170); Glucose 126 mg/dL (74-99); Non-African American GFR(CKD) >90 (>60 ml/min/1.73 sqM); Potassium 4.7 mmol/L (3.5-5.1); Sodium 139 mmol/L (137-145); Total Bilirubin 0.3 mg/dL (0.2-1.3); Total Protein 6.5 g/dL (6.3-8.2)
[2019-12-18] MEDS: FAMOTIDINE 20 MG/2 ML VIAL IV SCH ×2 (08:47→20:46)
[2019-12-18] MEDS: methylPREDNISolone SOD SUCCI 40 MG/ML 1 ML VIAL IV SCH (08:47)
[2019-12-18] MEDS: AZITHROMYCIN 500 MG in SODIUM CHLORIDE 0.9% 250 ML IVPB SCH (09:39)
--- NOTE | 2019-12-18 10:20 | P.PN ---
Subjective Progress Note Date: 12/18/19 Principal diagnosis: CoVID 19 pneumonitis 39-year-old male patient of Dr. Fagan, with no significant past medical history, presented to the emergency department on 12/15/2019 with one week history of shortness of breath, coughing, fever, not feeling well. Ritu bruno was seen at the [facility], was tested for COVID 19 and the results were inconclusive. He was given a course of Z-Agustin which she completed 3 days worth. His symptoms did not improve, patient was increasingly more short of breath, having decreased oral intake, nausea and vomiting, and he went to get tested at [facility], and was found to be positive. 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 Yesterday patient felt very weak and felt very lightheaded. He presented to the ED for evaluation. Chest x-ray was unremarkable, but CTA chest showed bilateral peripheral mainly posterior pulmonary infiltrates consistent with inflammatory disease, no evidence of pulmonary embolism. Labs showed normal white count of 4.9, hemoglobin of 15.1, lymphocyte count was 0.6, coagulation profile was within normal limits, d-dimer was less than 0.17, sodium was 132, the rest of the electrolytes and renal profile were within normal limits, plasma lactic acid was normal at 1.3, ferritin level was 718, LFTs were within normal limits, LDH was 538, 3 sets of troponins were less than 0.012, CRP was 31.4, and pro- calcitonin was 0.15. Patient was febrile on presentation with a temp of 102.1F . Normotensive, room air pulse ox is 98-100%. During our evaluation he is awake and alert, he is complaining of a headache, CT of the brain, and C-spine was completed showing normal scan of the brain and of the cervical spine. Patient was started on Zithromax and Rocephin for empiric antibiotic coverage, he was given IV fluid hydration, he was given morphine for pain control. During her evaluation patient is awake and alert, oriented 3, he is dyspneic and slightly tachypneic, he is on room air, with a pulse ox of 99%, low-grade fever this afternoon, with a temp of 100.4F. On 12/17/2019 patient is seen in follow-up on selective care unit, she is resting comfortably in bed, he states he is feeling better, his dyspnea and chest discomfort have improved, no vomiting, although his stomach still feels in "nots". The patient was able to tolerate breakfast. Febrile pattern seems to have improved, patient is afebrile today. Room air pulse ox is 99%, hemodynamically he stable, lung sounds reveal crackles at bilateral bases. No wheezes, today's labs have been reviewed showing white blood cell count of 2.2, hemoglobin of 13.5, repeat d-dimer was less than 0.17, sodium is 135, the rest of the electrolytes are within normal limits, inflammatory markers were repeated, ferritin level is pending, LDH is 468, 3 sets of troponins were negative at less than 0.012, CRP is 43.9. he remains on empiric antibiotics, his pro-calcitonin was mildly elevated to 0.15. Blood cultures have been sent. [facility] is on prophylactic anticoagulation in the form of Lovenox, IV steroids, and albuterol inhaler. The patient is seen today 12/18/2019 in follow-up on the selective care unit. He is awake and alert in no acute distress. Breathing a bit easier today compared to yesterday. Maintaining good O2 saturations up to 100% on 2 L/m per nasal cannula. He's been afebrile. Hemodynamically stable. Blood cultures reveal no growth. White count 8.1. Hemoglobin 14.2. D-dimer less than 0.17. Sodium 139. Potassium 4.7. In 0.89. AST 52. ALT 53. Creatinine kinase 77. He's been maintained on ceftriaxone and azithromycin. He is on Lovenox for DVT prophylaxis. IV Pepcid. 0.9 normal saline at 125 ML's per hour. Objective - Vital Signs Vital signs: Vital Signs Temp 98.8 F 12/18/19 08:40 Pulse 86 12/18/19 08:40 Resp 16 12/18/19 08:40 BP 126/60 12/18/19 08:40 Pulse Ox 100 12/18/19 08:40 Intake & Output 12/17/19 12/18/19 12/18/19 18:59 06:59 18:59 Intake Total 2720 1300 180 Balance 2720 1300 180 Weight 110.4 kg Intake: IV 2300 1000 Azithromycin 500 mg In 250 Sodium Chloride 0.9% 250 ml @ 250 mls/hr IVPB DAILY [facility] Rx#:[id number] Sodium Chloride 0.9% 1999 1000 000 ml @ 125 mls/hr IV . Q8H [facility] Rx#:[id number] cefTRIAXone 1 gm In 50 Sodium Chloride 0.9% 50 ml @ 100 mls/hr IVPB Q24HR [facility] Rx#:[id number] Oral 420 300 180 Other: Voiding Method Toilet Toilet # Voids 1 3 # Bowel Movements 0 - Exam GENERAL EXAM: Alert, pleasant 39-year-old gentleman, on 2 L nasal cannula, comfortable in no apparent distress. HEAD: Normocephalic. EYES: Normal reaction of pupils, equal size. NOSE: Clear with pink turbinates. THROAT: No erythema or exudates. NECK: No masses, no JVD. CHEST: No chest wall deformity. LUNGS: Equal air entry with faint crackles in the posterior bases. CVS: S1 and S2 normal with no audible murmur, regular rhythm. ABDOMEN: No hepatosplenomegaly, normal bowel sounds, no guarding or rigidity. SPINE: No scoliosis or deformity SKIN: No rashes CENTRAL NERVOUS SYSTEM: No focal deficits, tone is normal in all 4 extremities. EXTREMITIES: There is no peripheral edema. No clubbing, no cyanosis. Peripheral pulses are intact. - Labs CBC & Chem 7: 12/18/19 07:45 12/18/19 07:45 Labs: Abnormal Lab Results - Last 24 Hours (Table) 12/17/19 12/18/19 12/18/19 Range/Units 05:49 07:45 07:45 Lymphocytes # 0.7 L (1.0-4.8) k/uL Glucose 126 H (74-99) mg/dL Ferritin 838.7 H (22.0-322.0) ng/mL ALT 53 H (4-49) U/L Microbiology - Last 24 Hours (Table) 12/15/19 19:19 Blood Culture - Preliminary Blood No Growth after 48 hours Assessment and Plan Assessment: #1. Acute Covid 19 related pneumonitis, patient resented with one-week history of dyspnea, shortness of breath, chest discomfort, nausea and vomiting. Was tested on outpatient basis at the [facility] 2 days ago, and had positive results #2. Dyspnea, cough, fever, nausea and vomiting related to the above #3. Elevated ferritin, CRP related to Covid 19 pneumonitis, LDH was within normal limits at 538, and d-dimer was less than 0.17, will follow inflammatory markers #4. Lightheadedness, presyncopal episode related to poor oral intake, nausea and vomiting, dehydration #5. Headache, CT of the brain and cervical spine negative #6. Never smoker Plan: The patient was seen and evaluated by Dr. Spencer We will discontinue IV Solu-Medrol and switched to oral dexamethasone Continue antibiotics Continue Lovenox Continue Pepcid Repeat chest x-ray in the a.m. Probable discharge in the a.m. I, the cosigning physician, performed a history & physical examination of the patient. Lungs sounds with crackles in the bases. Maintaining good O2 saturations in the 90s on 2 L/m per nasal cannula. I discussed the assessment and plan of care with my nurse practitioner, Patricia Sellers. I attest to the above note as dictated by her.
[2019-12-18 10:31] LABS: LDH 661 U/L (313-618)
[2019-12-18] MEDS: DEXAMETHASONE 4 MG TAB PO SCH ×3 (12:55→20:46)
[2019-12-18] MEDS: ENOXAPARIN 40 MG/0.4 ML SYRINGE SQ SCH (12:55)
--- NOTE | 2019-12-18 14:12 | P.PN ---
Subjective Progress Note Date: 12/18/19 (delayed charting seen at 1130) Principal diagnosis: shortness of breath Patient is a 39-year-old -[place] male with no past medical history who presented to the emergency department due to worsening shortness of breath and coughing. Patient had an outpatient Covid test which was positive. On arrival to the emergency department he had a fever of 102.1. Chest x-ray was normal and CT chest confirmed bilateral perihilar infiltrates. He is also complaining of a headache and had a normal CT of the brain and cervical spine. He is admitted for further monitoring. Pulmonary was consulted. He was started on IV steroids and bronchodilators along with Lovenox. Initially he was found to be hyponatremic which was felt to be secondary to dehydration. He was found have elevated inflammatory markers. His pro calcitonin was 0.15 and pulmonary recommended antibiotics to cover possible bacterial pneumonia. Patient seen and examined at bedside. He still feeling overall tired and fatigued. He denies any nausea, vomiting, or diarrhea. His shortness of breath has remained unchanged. His cough is less. His chest pain has subsided. Objective - Vital Signs Vital signs: Vital Signs Temp 98.8 F 12/18/19 08:40 Pulse 76 12/18/19 11:50 Resp 16 12/18/19 12:54 BP 129/80 12/18/19 11:50 Pulse Ox 97 12/18/19 12:54 Intake & Output 12/17/19 12/18/19 12/18/19 18:59 06:59 18:59 Intake Total 2720 1300 480 Balance 2720 1300 480 Weight 110.4 kg Intake: IV 2300 1000 300 Azithromycin 500 mg In 250 250 Sodium Chloride 0.9% 250 ml @ 250 mls/hr IVPB DAILY [facility] Rx#:[id number] Sodium Chloride 0.9% 1, 2000 1000 000 ml @ 125 mls/hr IV . Q8H [facility] Rx#:[id number] cefTRIAXone 1 gm In 50 50 Sodium Chloride 0.9% 50 ml @ 100 mls/hr IVPB Q24HR [facility] Rx#:[id number] Oral 420 300 180 Other: Voiding Method Toilet Toilet Toilet # Voids 1 3 # Bowel Movements 0 - Exam General: Ill appearing, no distress, appears at stated age Derm: warm, dry Head: atraumatic, normocephalic, symmetric Eyes: EOMI, no lid lag, anicteric sclera Mouth: no lip lesion, mucus membranes dry Cardiovascular: S1S2 reg, no murmur, positive posterior tibial pulse bilateral, Lungs: Crackles left base, no rhonchi, no rales , no accessory muscle use Abdominal: soft, nontender to palpation, no guarding, no appreciable organomegaly Ext: no gross muscle atrophy, no edema, no contractures Neuro: CN II-XI grossly intact, no focal neuro deficits Psych: Alert, oriented, appropriate affect - Labs CBC & Chem 7: 12/18/19 07:45 12/18/19 07:45 Labs: Abnormal Lab Results - Last 24 Hours (Table) 12/18/19 12/18/19 Range/Units 07:45 07:45 Lymphocytes # 0.7 L (1.0-4.8) k/uL Glucose 126 H (74-99) mg/dL ALT 53 H (4-49) U/L Lactate Dehydrogenase 661 H (313-618) U/L C-Reactive Protein 25.0 H (<10.0) mg/L Microbiology - Last 24 Hours (Table) 12/15/19 19:19 Blood Culture - Preliminary Blood No Growth after 48 hours Assessment and Plan Assessment: COVID 19 pneumonia -Pulm recs appreciated - transitioned to dexamethasone - Continue with zithromax and rocephin for a total of 5 days - repeat CXR in AM - Wean O2 and check ambulatory pulse ox - ASA on discharge Costchondritis - steroids - pain control Lymphopena - improving - likely related to covid 19 - follow CBC leukopenia, resolved hyponatremia, resolved Headache, improed TAYLOR, resolved DVT prophylaxis: Lovenox Discussed with: Patient, nursing Anticipated discharge: in AM Anticipated discharge place: home A total of 25 minutes was spent on the care of this complex patient more than 50% of the time was spent in counseling and care coordination.
[2019-12-18 18:59] LABS: Ferritin 840.9 ng/mL (22.0-322.0)
[2019-12-19] MEDS: SODIUM CHLORIDE 0.9% 1,000 ML IV SCH (05:02)
[2019-12-19 06:27] LABS: Basophils % (A) 0 %; Eosinophils % (A) 0 %; HCT 40.5 % (39.0-53.0); HGB 12.8 gm/dL (13.0-17.5); Lymphocytes # (A) 0.5 k/uL (1.0-4.8); Lymphocytes % (A) 5 %; MCH 29.1 pg (25.0-35.0); MCHC 31.6 g/dL (31.0-37.0); MCV 92.2 fL (80.0-100.0); Mean Platelet Volume 7.4; Monocytes # (A) 0.5 k/uL (0-1.0); Monocytes % (A) 5 %; Neutrophils # (A) 9.4 k/uL (1.3-7.7); Neutrophils % (A) 89 %; Platelet Count 277 k/uL (150-450); WBC 10.5 k/uL (3.8-10.6)
[2019-12-19 06:37] LABS: ALT 68 U/L (4-49); AST 46 U/L (17-59); African American GFR (CKD) >90 (>60 ml/min/1.73 sqM); Albumin 3.5 g/dL (3.5-5.0); Alkaline Phosphatase 57 U/L (38-126); Anion Gap 6 mmol/L; Blood Urea Nitrogen 10 mg/dL (9-20); C Reactive Protein 22.2 mg/L (<10.0); Calcium 8.7 mg/dL (8.4-10.2); Carbon Dioxide 26 mmol/L (22-30); Chloride 104 mmol/L (98-107); Creatine Kinase 60 U/L (55-170); Glucose 136 mg/dL (74-99); LDH 568 U/L (313-618); Non-African American GFR(CKD) >90 (>60 ml/min/1.73 sqM); Sodium 136 mmol/L (137-145); Total Bilirubin 0.3 mg/dL (0.2-1.3); Total Protein 6.3 g/dL (6.3-8.2)
--- NOTE | 2019-12-19 08:13 | XR ---
EXAMINATION TYPE: XR chest 1V portable DATE OF EXAM: 12/19/2019 Comparison: 12/15/2019 Clinical History: 39-year-old male covid 19 pneumonitis Findings: Heart normal size. Aorta and pulmonary vasculature within normal limits. Scattered interstitial and p eripheral patchy and lower lung densities increased from prior. No pleural effusion. Impression: New interstitial and peripheral and lower lung patchy densities may be in keeping with reported histo ry of COVID pneumonia.
[2019-12-19] MEDS: FAMOTIDINE 20 MG/2 ML VIAL IV SCH (08:59)
[2019-12-19] MEDS: DEXAMETHASONE 4 MG TAB PO SCH (08:59)
[2019-12-19] MEDS ORDERED: AZITHROMYCIN 500 MG TAB PO SCH (09:00)
[2019-12-19 09:07] VITALS: BP 137/83; PULSE 83; RESP 18; TEMP 99
--- NOTE | 2019-12-19 10:54 | P.PN ---
Subjective Progress Note Date: 12/19/19 Principal diagnosis: CoVID 19 pneumonitis 39-year-old male patient of Dr. Fagan, with no significant past medical history, presented to the emergency department on 12/15/2019 with one week history of shortness of breath, coughing, fever, not feeling well. Ritu bruno was seen at the [facility], was tested for COVID 19 and the results were inconclusive. He was given a course of Z-Agustin which she completed 3 days worth. His symptoms did not improve, patient was increasingly more short of breath, having decreased oral intake, nausea and vomiting, and he went to get tested at [facility], and was found to be positive. 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 Yesterday patient felt very weak and felt very lightheaded. He presented to the ED for evaluation. Chest x-ray was unremarkable, but CTA chest showed bilateral peripheral mainly posterior pulmonary infiltrates consistent with inflammatory disease, no evidence of pulmonary embolism. Labs showed normal white count of 4.9, hemoglobin of 15.1, lymphocyte count was 0.6, coagulation profile was within normal limits, d-dimer was less than 0.17, sodium was 132, the rest of the electrolytes and renal profile were within normal limits, plasma lactic acid was normal at 1.3, ferritin level was 718, LFTs were within normal limits, LDH was 538, 3 sets of troponins were less than 0.012, CRP was 31.4, and pro- calcitonin was 0.15. Patient was febrile on presentation with a temp of 102.1F . Normotensive, room air pulse ox is 98-100%. During our evaluation he is awake and alert, he is complaining of a headache, CT of the brain, and C-spine was completed showing normal scan of the brain and of the cervical spine. Patient was started on Zithromax and Rocephin for empiric antibiotic coverage, he was given IV fluid hydration, he was given morphine for pain control. During her evaluation patient is awake and alert, oriented 3, he is dyspneic and slightly tachypneic, he is on room air, with a pulse ox of 99%, low-grade fever this afternoon, with a temp of 100.4F. On 12/17/2019 patient is seen in follow-up on selective care unit, she is resting comfortably in bed, he states he is feeling better, his dyspnea and chest discomfort have improved, no vomiting, although his stomach still feels in "nots". The patient was able to tolerate breakfast. Febrile pattern seems to have improved, patient is afebrile today. Room air pulse ox is 99%, hemodynamically he stable, lung sounds reveal crackles at bilateral bases. No wheezes, today's labs have been reviewed showing white blood cell count of 2.2, hemoglobin of 13.5, repeat d-dimer was less than 0.17, sodium is 135, the rest of the electrolytes are within normal limits, inflammatory markers were repeated, ferritin level is pending, LDH is 468, 3 sets of troponins were negative at less than 0.012, CRP is 43.9. he remains on empiric antibiotics, his pro-calcitonin was mildly elevated to 0.15. Blood cultures have been sent. [facility] is on prophylactic anticoagulation in the form of Lovenox, IV steroids, and albuterol inhaler. The patient is seen today 12/18/2019 in follow-up on the selective care unit. He is awake and alert in no acute distress. Breathing a bit easier today compared to yesterday. Maintaining good O2 saturations up to 100% on 2 L/m per nasal cannula. He's been afebrile. Hemodynamically stable. Blood cultures reveal no growth. White count 8.1. Hemoglobin 14.2. D-dimer less than 0.17. Sodium 139. Potassium 4.7. In 0.89. AST 52. ALT 53. Creatinine kinase 77. He's been maintained on ceftriaxone and azithromycin. He is on Lovenox for DVT prophylaxis. IV Pepcid. 0.9 normal saline at 125 ML's per hour. The patient is seen today 12/19/2019 in follow-up on the selective care unit. He is awake and alert in no acute distress. Maintaining good O2 saturations in the 90s on room air. Afebrile. Hemodynamically stable. Blood culture reveals no growth. White count 10.5. Hemoglobin 12.8. Lymphocytes 0.5. D-dimer less than 0.17. Sodium 136. Potassium 4.0. Creatinine 0.82. Glucose 136. LDH 568. Creatinine kinase 60. C-reactive protein 22.2. He remains on ceftriaxone and azithromycin. Continued on dexamethasone. Continued on Pepcid. Chest x- ray reveals patchy densities in the bases consistent with Covid pneumonia. Objective - Vital Signs Vital signs: Vital Signs Temp 99 F 12/19/19 08:00 Pulse 83 12/19/19 08:00 Resp 18 12/19/19 08:00 BP 137/83 12/19/19 08:00 Pulse Ox 99 12/19/19 08:00 Intake & Output 12/18/19 12/19/19 12/19/19 18:59 06:59 18:59 Intake Total 660 1300 90 Balance 660 1300 90 Weight 112 kg Intake: IV 300 1000 Azithromycin 500 mg In 250 Sodium Chloride 0.9% 250 ml @ 250 mls/hr IVPB DAILY [facility] Rx#:[id number] Sodium Chloride 0.9% 1, 1000 000 ml @ 125 mls/hr IV . Q8H [facility] Rx#:[id number] cefTRIAXone 1 gm In 50 Sodium Chloride 0.9% 50 ml @ 100 mls/hr IVPB Q24HR [facility] Rx#:[id number] Oral 360 300 90 Other: Voiding Method Toilet Toilet Toilet # Voids 1 4 1 - Exam GENERAL EXAM: Alert, pleasant 39-year-old gentleman, on room air, comfortable in no apparent distress. HEAD: Normocephalic. EYES: Normal reaction of pupils, equal size. NOSE: Clear with pink turbinates. THROAT: No erythema or exudates. NECK: No masses, no JVD. CHEST: No chest wall deformity. LUNGS: Equal air entry with faint crackles in the posterior bases. CVS: S1 and S2 normal with no audible murmur, regular rhythm. ABDOMEN: No hepatosplenomegaly, normal bowel sounds, no guarding or rigidity. SPINE: No scoliosis or deformity SKIN: No rashes CENTRAL NERVOUS SYSTEM: No focal deficits, tone is normal in all 4 extremities. EXTREMITIES: There is no peripheral edema. No clubbing, no cyanosis. Peripheral pulses are intact. - Labs CBC & Chem 7: 12/19/19 05:55 12/19/19 05:55 Labs: Abnormal Lab Results - Last 24 Hours (Table) 12/18/19 12/19/19 12/19/19 Range/Units 07:45 05:55 05:55 Hgb 12.8 L (13.0-17.5) gm/dL Neutrophils # 9.4 H (1.3-7.7) k/uL Lymphocytes # 0.5 L (1.0-4.8) k/uL Sodium 136 L (137-145) mmol/L Glucose 136 H (74-99) mg/dL Ferritin 840.9 H (22.0-322.0) ng/mL ALT 68 H (4-49) U/L C-Reactive Protein 22.2 H (<10.0) mg/L Microbiology - Last 24 Hours (Table) 12/15/19 19:19 Blood Culture - Preliminary Blood No Growth after 72 hours Assessment and Plan Assessment: #1. Acute Covid 19 related pneumonitis, patient resented with one-week history of dyspnea, shortness of breath, chest discomfort, nausea and vomiting. Was tested on outpatient basis at the [facility] 2 days ago, and had positive results #2. Dyspnea, cough, fever, nausea and vomiting related to the above #3. Elevated ferritin, CRP related to Covid 19 pneumonitis, LDH was within normal limits at 538, and d-dimer was less than 0.17, will follow inflammatory markers #4. Lightheadedness, presyncopal episode related to poor oral intake, nausea and vomiting, dehydration #5. Headache, CT of the brain and cervical spine negative #6. Never smoker Plan: The patient was seen and evaluated by Dr. Spencer Cleared for discharge from the pulmonary standpoint Continue dexamethasone another 3-5 days Complete a course of antibiotics Would recommend a recheck of his Covid status in 2 weeks I, the cosigning physician, performed a history & physical examination of the patient. Lungs sounds with crackles in the bases. Maintaining good O2 saturations in the 90s on room air. I discussed the assessment and plan of care with my nurse practitioner, Patricia Sellers. I attest to the above note as dictated by her.
--- NOTE | 2019-12-19 11:03 | P.DS ---
Providers Date of admission: 12/17/19 09:04 Expected date of discharge: 12/19/19 Attending physician: Radha Luu MD Consults: 12/16/19 11:42 Consult Physician Stat Consulting Provider: Ange Guo Consult Reason/Comments: COVID PNA Do you want consulting provider notified?: Yes Primary care physician: [facility] Course: Discharge Diagnosis: Viral Pneumonia due to COVID 19 COVID 19 Costochondritis Lymphopenia Leukopenia Hyponatremia Headache TAYLOR Hospital Course: Patient is a 39-year-old -[place] male with no past medical history who presented to the emergency department due to worsening shortness of breath and coughing. Patient had an outpatient Covid test which was positive. On arrival to the emergency department he had a fever of 102.1. Chest x-ray was normal and CT chest confirmed bilateral perihilar infiltrates. He was also complaining of a headache and had a normal CT of the brain and cervical spine. He was admitted for further monitoring. Pulmonary was consulted. He was started on IV steroids and bronchodilators along with Lovenox. Initially he was found to be hypon atremic which was felt to be secondary to dehydration. He was found have elevated inflammatory markers. His procalcitonin was 0.15 and pulmonary recommended antibiotics to cover possible bacterial pneumonia. He completed 5 days of antibiotics. He inflammatory marker were improving, CXR was unchanged fro CT, and he was cleared by pulmonary for discharge. I discussed with the patient maintaining self isolation for 10 days from symptom onset with 3 days of clinical improvement or negative testing. RX was sent for repeat testing. He will complete a course of dexamethasone 5 mg oral daily for 10 days based on results of the RECOVERY study. Patient seen and examined at bedside. Breathing is better, no chest pain, cough is getting better. No nausea, no vomiting. Vital signs reviewed and stable. General: non toxic, no distress, appears at stated age Derm: warm, dry Head: atraumatic, normocephalic, symmetric Eyes: EOMI, no lid lag, anicteric sclera Mouth: no lip lesion, mucus membranes moist Cardiovascular: S1S2 reg, no murmur, positive posterior tibial pulse bilateral, Lungs: CTA bilateral, no rhonchi, no rales , no accessory muscle use Abdominal: soft, nontender to palpation, no guarding, no appreciable organomegaly Ext: no gross muscle atrophy, no edema, no contractures Neuro: CN II-XI grossly intact, no focal neuro deficits Psych: Alert, oriented, appropriate affect A total of 42 minutes of time were spent preparing this complex discharge summary . Patient Condition at Discharge: Stable Plan - Discharge Summary Discharge Rx Participant: No New Discharge Prescriptions: New Dexamethasone 6 mg PO DAILY #8 tablet Albuterol Sulfate [Proair Hfa] 1 - 2 puff INHALATION Q6HR PRN #1 inhaler PRN Reason: Shortness Of Breath Continue Dextroamphetamine/Amphetamine [Dextroamp-Amphetamin 30 mg Tab] 30 mg PO BID Acetaminophen Tab [Tylenol] 500 - 1,500 mg PO DAILY PRN PRN Reason: Pain Discontinued Azithromycin [Zithromax Z-pack] See Taper PO DAILY Discharge Medication List Acetaminophen Tab [Tylenol] 500 - 1,500 mg PO DAILY PRN 12/15/19 [History] Dextroamphetamine/Amphetamine [Dextroamp-Amphetamin 30 mg Tab] 30 mg PO BID 12/15/19 [History] Albuterol Sulfate [Proair Hfa] 1 - 2 puff INHALATION Q6HR PRN #1 inhaler 12/19/19 [Rx] Dexamethasone 6 mg PO DAILY #8 tablet 12/19/19 [Rx] Follow up Appointment(s)/Referral(s): Cash Fagan MD [Primary Care Provider] - 1-2 days Activity/Diet/Wound Care/Special Instructions: Activity: Self isolation Diet: regular Special Instructions: See COVID-19 Discharge sheet Call [phone] to schedule your appointment Discharge Disposition: HOME SELF-CARE
== END 2019-12-19 13:28 | disposition home or self-care (01) | DRG 177 ==
LOC: EDBD → EC 17:42 → 3SCARD 20:30 → OBSVTOIN 12-17 09:04
PROVIDERS: ADMIT Family Medicine; ATTEND Family Medicine
DX: U07.1 COVID-19 (principal); J12.89 Other viral pneumonia; J15.9 Unspecified bacterial pneumonia; N17.9 Acute kidney failure, unspecified; E87.1 Hypo-osmolality and hyponatremia; E86.0 Dehydration; R55 Syncope and collapse; R11.2 Nausea with vomiting, unspecified; R79.82 Elevated C-reactive protein (CRP); D72.810 Lymphocytopenia; M94.0 Chondrocostal junction syndrome [Tietze]; W19.XXXA Unspecified fall, initial encounter; Z71.3 Dietary counseling and surveillance; Z98.890 Other specified postprocedural states
CPT/HCPCS: 36415; 70450; 71045; 71275; 72125; 80053; 82550; 82728; 83605; 83615; 83735; 84145; 84484; 85025; 85379; 85610; 85730; 86140; 87040; 93005; 94640; 96361; 96374; 99285